=== PATIENT | female | born 2000 | race Two or more races ===

== ENCOUNTER 2023-07-06 08:25 | Emergency (ER) | payer MEDICAID ==
[~2023-07-06] VITALS: Ht 162.6 cm; Wt 58.8 kg
[2023-07-06] MEDS: ACETAMINOPHEN 325 MG TAB PO ONE ×2 (08:45→09:51)
[2023-07-06] MEDS: cefTRIAXone SOD 1,000 MG VL IM ONE (09:51)
[2023-07-06] MEDS ORDERED: AZIT-185 PO (09:52)
[2023-07-06] MEDS ORDERED: IBUP-1454 PO (09:52)
[2023-07-06 09:53] VITALS: BP 119/72; PULSE 120; RESP 16; O2SAT 98
[2023-07-06 10:04] VITALS: TEMP 99
== END 2023-07-06 10:08 | disposition home or self-care (01) ==
LOC: ER 08:25
DX: J03.90 Acute tonsillitis, unspecified (principal)
CPT/HCPCS: 96372; 99283; J0696

== ENCOUNTER 2024-01-01 05:04 | Emergency (ER) | payer MEDICAID ==
[~2024-01-01] VITALS: Ht 162.6 cm; Wt 59.4 kg
[~2024-01-01 05:04] MED LIST: AZIT-185 PO; IBUP-1454 PO
[2024-01-01] MEDS ORDERED: CIPR0.3O OP (05:16)
--- NOTE | 2024-01-01 05:16 | ED.PDOC ---
Eye-HPI HPI Comments 23 year old female presents to ER with left eye complaint x 2 days. Patient reports she has been experiencing redness/itchiness/pain to left eye with associated green crusty drainage to left eye x 2 days. She rates her current pain an "itching/burning" 5/10 to left eye. Notes she has been around her younger brother who has also been experiencing similar symptoms. Denies fever, skin changes, foreign body sensation, injury, vision changes, use of contacts /glasses, being sexually active or any further symptoms/complaints Chief Complaint: Eye Problem Time Seen by MD: 05:06 Primary Care Provider: CHANTAL Reviewed Notes: Nurses Notes, Medications, Allergies Allergies: Coded Allergies: NO KNOWN ALLERGIES (Unverified , 01/01/24) Home Meds Active Scripts Ciprofloxacin Hcl (Ciloxan) 0.3 % Oin, 0.3 % OP TID for 7 Days, #1 OIN 0 Refills Prov:NGUYEN BRANHAM 01/01/24 Ibuprofen (Ibuprofen) 600 Mg Tab, 1 TAB PO QID, #24 TAB Prov:SYD FRAGA 07/06/23 Azithromycin (ZITHROMAX TABLET) 250 Mg Tb, 250 MG PO DAILY, #6 TAB Prov:SYD FRAGA 07/06/23 Information Source: Patient Past Medical History PAST MEDICAL HISTORY: Denies Surgical History: Denies all surgeries 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 Family History Family History: Unknown Social History Smoker: Non-Smoker Alcohol: Denies ETOH Use Drugs: Denies Drug Use Lives In: Home Constitutional: denies: chills, diaphoresis, fatigue, fever, malaise, sweats, weakness, others EENTM: reports: others (As stated in HPI) Respiratory: denies: cough, hemoptysis, orthopnea, SOB at rest, shortness of breath, SOB with excertion, stridor, wheezing, others Cardiovascular: denies: chest pain, dizzy spells, diaphoresis, Dyspnea on exertion, edema, irregular heart beat, left arm pain, lightheadedness, palpitations, PND, syncope, others Gastrointestinal: denies: abdomen distended, abdominal pain, blood streaked bowels, constipated, diarrhea, dysphagia, difficulty swallowing, hematemesis, melena, nausea, poor appetite, poor fluid intake, rectal bleeding, rectal pain, vomiting, others Genitourinary: denies: abnormal vagina bleeding, burning, dyspareunia, dysuria, flank pain, frequency, hematuria, incontinence, pain, , vagina discharge, urgency, others Neurological: denies: dizziness, fainting, headache, left sided numbness, left sided weakness, numbness, paresthesia, pre-existing deficit, right sided numbness, right sided weakness, seizure, speech problems, tingling, tremors, weakness, others Musculoskeletal: denies: back pain, gout, joint pain, joint swelling, muscle pain, muscle stiffness, neck pain, others Integumetry: denies: bruises, change in color, change in hair/nails, dryness, laceration, lesions, lumps, rash, wounds, others Allergic/Immunocompromised: denies: Difficulty Healing, Frequent Infections, Hives, Itching, others Hematologic/Lymphatic: denies: anemia, blood clots, easy bleeding, easy bruising, swollen glands, others Endocrine: denies: excessive hunger, excessive sweating, excessive thirst, excessive urination, flushing, intolerance to cold, intolerance to heat, unexplained weight gain, unexplained weight loss, others Psychiatric: denies: anxiety, bipolar disorder, depression, hopeless, panic disorder, schizophrenia, sleepless, suicidal, others Physical Exam General Appearance: No Apparent Distress HEENT: PERRL/EOMI, Pharynx Normal, TMs Normal, Other (Mild subconjunctival injection and mild green crusty drainage noted to left eye. No Foreign body/skin changes appreciated. ) Neck: Full Range of Motion, Non-Tender, Normal Respiratory: Chest Non-Tender, Lungs Clear, No Accessory Muscle Use, No Respiratory Distress, Normal Breath Sounds Cardiovascular: No Murmur, No Gallop, Regular Rate/Rhythm Breast Exam: Deferred Gastrointestinal: NOT DONE Genitalia: Deferred Pelvic: Deferred Rectal: Deferred Extremities: Normal capillary refill, Normal range of motion Neurologic: Alert, security management specialist II-XII nml as Tested, No Motor Deficits, Normal Affect, Normal Mood, No Sensory Deficits Cerebellar Function: Normal Reflexes: Normal Skin: Dry, Normal Color, Warm Lymphatic: No Adenopathy Was a procedure done? Was a procedure done?: No Sedation Sedation?: No EENT DIFF Eye: Corneal Abrasion, Foreign Body-Corneal, Orbital Cellulits, Periorbital Cellulits X-Ray, Labs, Meds, VS Vital Signs Date Time Temp Pulse Resp B/P (MAP) Pulse Ox O2 Delivery O2 Flow Rate FiO2 01/01/24 05:07 98.4 86 18 112/50 (70) 98 Importance of good hand hygiene discussed and advised Advised to f/u with ophthalmology in 3-4 days if symptoms do not improve Advised to f/u with PCP in 1-2 days Patient verbalized understanding and agreeable with current plan of care Advised to return to ER immediately if symptoms worsen Time of 1ST Reevaluation: 04:44 Reevaluation 1ST: N/A Patient Education/Counseling: Diagnosis, Treatment, Prognosis, Need For Follow Up Family Education/Counseling: No Family Present Departure 1 Departure Time of Disposition: 05:02 Impression: Primary Impression: Bacterial conjunctivitis of left eye Disposition: 01 HOME / SELF CARE / HOMELESS Condition: Stable e-Prescriptions Ciprofloxacin Hcl (Ciloxan) 0.3 % Oin 0.3 % OP TID for 7 Days, #1 OIN 0 Refills Prov: NGUYEN BRANHAM 01/01/24 Discharged With: Self Critical Care Note Critical Care Time?: No Stability Stability form required: No Heart Score Heart Score: Heart Score Response (Comments) Value History N/A 0 EKG N/A 0 Age N/A 0 Risk Factors N/A 0 Troponin N/A 0 Total 0 NGUYEN BRANHAM Jan 01, 2024 05:16
[2024-01-01 07:16] VITALS: BP 112/50; PULSE 86; RESP 18; TEMP 98.4; O2SAT 98
== END 2024-01-01 07:14 | disposition home or self-care (01) ==
LOC: ER 05:04
DX: H10.89 Other conjunctivitis (principal)